=== PATIENT | male | born 1995 | race Caucasian/White ===

== ENCOUNTER 2023-07-20 08:32 | Emergency (ER) | payer SELFPAY ==
[2023-07-20] MEDS ORDERED: Tetracaine 0.5% PF 4 ML BOT ONE (08:38)
[2023-07-20] MEDS ORDERED: Boostrix 0.5 ML (Tdap) VIAL (>/=7 yrs of age) ONE (08:39)
== END 2023-07-20 09:04 | disposition home or self-care (01) ==
LOC: MADERS 08:32
DX: T15.01XA Foreign body in cornea, right eye, initial encounter (principal)
CPT/HCPCS: 90471; 90715; 99283